=== PATIENT | male | born 1980 | race African-American/Black ===

== ENCOUNTER 2017-04-29 04:19 | Inpatient (IN) | payer MEDICARE ==
[~2017-04-29] VITALS: Ht 167.6 cm; Wt 74.8 kg
--- NOTE | ~2017-04-29 | EC ---
PATIENT:DALIA BABIN DATE OF SERVICE: 04/29/17 SEX: M MEDICAL RECORD: [id number] DATE OF : [birth year] LOCATION:D.M2 D.213 AGE OF PATIENT: 36 ADMISSION DATE: 04/29/17 REFERRING PHYSICIAN: INTERPRETING PHYSICIAN: SOLANGE RANDALL MD ECHOCARDIOGRAM REPORT ECHO CHARGES 4 ECHO COMPLETE CLINICAL DIAGNOSIS: FEVER/POSSIBLE EMBOLI/ PROSTHETIC VALVE ECHOCARDIOGRAPHIC MEASUREMENTS (adult normal given) AC root (d.<3.7cm) 3.1 cm LV Septum d (<1.2 cm> 1.2 cm Valve Excursion 1.7 cm LV Septum (systole) 1.7 cm Left Atria (s.<4.0cm> 3.4 cm LVPW d(<1.2cm) 1.2 cm RV (d.<2.3cm) 2.2 cm LVPW (sytole) 1.8 cm LV diastole(<5.6CM) 4.4 cm MV E-F(>70mm/sec) cm LV systole 3.0 cm LVOT Diameter 1.6 cm MV exc.(>10mm) cm Est.ejection fraction (50-75%) % Pericardial Effusion N DOPPLER: LVIT cm/sec A 89.0 cm/sec E 108 cm/sec LA cm/sec RVSP 48.0 mmHg LVOT 126 cm/sec AOP1/2T m/s Asc. Ao 293 cm/sec RVOT 54.0 cm/sec RA cm/sec PA 94.0 cm/sec AV Gradient Peak 34.3 mmHg AV Mean 18.0 mmHg AV Area 0.9 cm MV Gradient Peak 7.9 mmHg MV Mean 3.4 mmHg MV Area 1.4 cm COMMENTS: Manager Social: Wilton BECKFORDOE Director Of Catering Sales: 4 Dr. Randall TAPE# PACS DATE OF SERVICE: 04/29/2017 FINDINGS: 1. Left ventricle: Left ventricle has left ventricular hypertrophy. This is normal in its size; however, there is global hypokinesis and overall ejection fraction is mildly reduced in 40% to 45% range. 2. The mitral valve has moderate mitral regurgitation. Structurally appears to be normal. 3. The aortic valve difficult to visualize, appears overall normal in its structure. The base of the aortic valve appears to be thickened. There is mild ECHOCARDIOGRAM REPORT [id number] DALIA BABIN increased velocities across the aortic valve, consistent with possibly mild aortic stenosis with a peak velocity at LV gradient of 34 mmHg. There appears to be some fusion in the right coronary, noncoronary cusp. The interatrial septum and intraventricular septum overall looks normal. The left atrium appears to be normal in size IVC is normal in size and collapses with inspiration, indicating normal central venous pressure. CONCLUSIONS: The patient has evidence of mild hypertensive cardiomyopathy with reduced ejection fraction that is in the mild range with mild aortic stenosis. TRANSINT:[id number] Voice Confirmation ID: [id number] DOCUMENT ID: [id number] 05/05/2017 Edited to correct date of service, dmm. SOLANGE RANDALL MD CC: [id number] DICTATION DATE: 05/01/17 0745 TIP FIXER: 05/01/17 1202 ADM IN [facility] [id number] [place] [address]
[2017-04-29 05:08] LABS: APPEARANCE CLEAR (CLEAR); BILIRUBIN 2+ (NEGATIVE); COLOR DK YELLOW (YELLOW); GLUCOSE NEGATIVE (NEGATIVE); KETONE NEGATIVE (NEGATIVE); LEUKOCYTE ESTERASE NEGATIVE (NEGATIVE); NITRITE NEGATIVE (NEGATIVE); PROTEIN 1+ mg/dL (NEGATIVE); SPECIFIC GRAVITY 1.005 (1.005-1.020); WHITE CELLS - URINE NSEEN /hpf (0-5)
[2017-04-29 05:09] LABS: BACTERIA NONE SEEN /hpf (NONE SEEN); EPITHELIAL CELLS NSEEN /hpf (0-5)
[2017-04-29 05:29] LABS: BASOPHILS 0.1 % (0-2); EOSINOPHILS 0 % (0-7); HEMATOCRIT 34.7 % (42.0-54.0); HEMOGLOBIN 12.4 g/dL (13.5-17.5); IMMATURE GRANULOCYTES 0.5 % (0-5); LYMPHOCYTES 8.7 % (15-50); MCH 30.8 pg (26.0-34.0); MCHC 35.7 g/dL (31.0-37.0); MCV 86.3 fL (80.0-100.0); MEAN PLATELET VOLUME 11.1 fL (7.4-10.4); MONOCYTES 6.1 % (2-11); NEUTROPHILS 84.6 % (40-80); PLATELET COUNT 77 10x3/uL (130-400); RBC 4.02 10x6/uL (4.20-6.10); RDW 13.5 % (11.5-14.5); WBC 12.9 10x3/uL (4.8-10.8)
[2017-04-29 05:44] LABS: ALBUMIN 2.5 g/dL (3.4-5.0); ANION GAP 15.9 mmol/L (8-16); BILIRUBIN - TOTAL 4.4 mg/dL (0.2-1.3); CALCIUM 8.1 mg/dL (8.5-10.1); CREATININE - SERUM 1.6 mg/dL (0.6-1.3); PROTEIN - SERUM 7.9 g/dL (6.4-8.2)
[2017-04-29 05:50] LABS: POTASSIUM - SERUM 2.9 mmol/L (3.5-5.1)
[2017-04-29 07:15] LABS: C-REACTIVE PROTEIN 100.8 mg/dL (0.0-0.9)
[2017-04-29] MEDS ORDERED: PERCOCET 10/3251 TA1 PO (07:21)
[2017-04-29] MEDS ORDERED: NORVIR100 MG PO (07:21)
[2017-04-29] MEDS ORDERED: OXYCONTIN10 MG PO (07:21)
[2017-04-29] MEDS ORDERED: NEURONTIN 300300 MG PO (07:22)
[2017-04-29] MEDS ORDERED: TRUVADA 200 MG1 EACH PO (07:23)
[2017-04-29] MEDS ORDERED: REYATAZ150 MG PO (07:23)
--- NOTE | 2017-04-29 07:25 | NUR ---
PATIENT ARRIVED TO ROOM 2137 AT 0708 VIA WHEELCHAIR. ALERT/ORIENTED. PLEASANT. 20 GAUGE IV SALINE LOCKED TO LEFT WRIST. AMBULATORY. PATIENT STATES HE JUST MOVED HERE FROM [place]. REPORTS NO MEDICATIONS TAKEN SINCE Monday04/24/17. CALL LIGHT WITHIN REACH. NO DISTRESS.
--- NOTE | 2017-04-29 07:32 | NUR ---
RESTING IN BED WITH ATTENTION TOWARD TELEVISION. IV FLUIDS INFUSING ORDERED AT THIS TIME. NO DISTRESS.
[2017-04-29 08:04] VITALS: BP 105/70
--- NOTE | 2017-04-29 08:40 | NUR ---
SPOKE TO AND RECEIVED NEW ORDERS. ORDERS INPUTTED INTO SYSTEM AT THIS TIME.
[2017-04-29 09:40] LABS: ANION GAP 12.1 mmol/L (8-16); CALCIUM 7.7 mg/dL (8.5-10.1); CARBON DIOXIDE 23.4 mmol/L (21.0-32.0); CREATININE - SERUM 1.6 mg/dL (0.6-1.3); POTASSIUM - SERUM 3.5 mmol/L (3.5-5.1)
[2017-04-29 11:00] VITALS: BP 105/70; BMI 27.1
[2017-04-29 11:29] VITALS: Ht 167.6 cm; Wt 74.8 kg
[2017-04-29 13:02] VITALS: BP 94/62
--- NOTE | 2017-04-29 14:36 | NUR ---
RECEIVED NEW ORDERS FROM DR.LIVERETT ROMERO FOR PATIENT TO HAVE TYLENOL FOR INCREASED TEMP AFTER DISCUSSING LIVER ENZYMES SLIGHTLY ELEVATED. THANKED .
--- NOTE | 2017-04-29 15:04 | NUR ---
1450 LEFT UNIT VIA WHEELCHAIR FOR CT SCAN WITH CONTRAST. NO DISTRESS UPON LEAVING UNIT.
[2017-04-29 16:26] VITALS: BP 102/56
--- NOTE | 2017-04-29 18:11 | NUR ---
RESTING IN BED WITH EYES OPEN, NO DISTRESS. CALL LIGHT WITHIN REACH. IV FLUIDS INFUSING ORDERED. DENIES NEEDS AT THIS TIME.
--- NOTE | 2017-04-29 19:43 | NUR ---
PT IN BED WITH EYES OPEN AND CHEST RISING. NO SIGN/SYMPTOMS OF DISTRESS NOTED. NO NEEDS OR CONCERNS MADE KNOWN AT THIS TIME. CALL LIGHT IN REACH.
[2017-04-29 20:00] VITALS: BP 98/62
[2017-04-29 23:16] LABS: UDS - AMPHET POSITIVE QUAL (NEGATIVE); UDS - BARB NEGATIVE QUAL (NEGATIVE); UDS - BENZO NEGATIVE QUAL (NEGATIVE); UDS - COCAINE NEGATIVE QUAL (NEGATIVE); UDS - METH NEGATIVE QUAL (NEGATIVE); UDS - OPIATE NEGATIVE QUAL (NEGATIVE); UDS - PCP NEGATIVE QUAL (NEGATIVE); UDS - THC POSITIVE QUAL (NEGATIVE)
[2017-04-30] VITALS: BP 135/64
--- NOTE | 2017-04-30 | NUR ---
PT IN BED WITH EYES OPEN. PT WITH CHILLS AND SHIVERING WITH EXTRA BLANKET APPLIED. VS TAKEN BLOOD PRESSURE 135/64, PULSE 120, RESP. 26, TEMP 100.8. O2 SAT 94% ROOM AIR. PRN TYLENOL GIVEN. PT WITH EYES CLOSED AT THIS TIME SNORING. SHIVERING CONTINUES WITH ELEVATED RESPIATIONS NOTED. AT THIS TIME PT STATES PAIN IS SLOWLY DECREASING AND SHIVERING HAS LESSENED. CALL LIGHT IN REACH. WILL CONTINUE TO OBSERVE.
--- NOTE | 2017-04-30 02:14 | NUR ---
PT IN BED WITH EYES CLOSED AND CHEST RISING. NO SIGN/SYMPTOMS OF DISTRESS NOTED. CALL LIGHT IN REACH.
[2017-04-30 04:00] VITALS: BP 93/47
--- NOTE | 2017-04-30 04:26 | NUR ---
PT IN BED WITH EYES CLOSED AND CHEST RISING. NO SIGN/SYMPTOMS OF DISTRESS NOTED. NO NEEDS OR CONCERNS NOTED AT THIS TIME. CALL LIGHT IN REACH.
--- NOTE | 2017-04-30 06:25 | NUR ---
PT IN BED WITH EYES OPEN AND CHEST RISING. NO CONCERNS OF NEEDS MADE KNOWN. CALL LIGHT IN REACH.
[2017-04-30 07:51] LABS: BASOPHILS 0.1 % (0-2); EOSINOPHILS 0 % (0-7); HEMATOCRIT 32.5 % (42.0-54.0); HEMOGLOBIN 11.4 g/dL (13.5-17.5); MCH 30.5 pg (26.0-34.0); MCHC 35.1 g/dL (31.0-37.0); MCV 86.9 fL (80.0-100.0); MEAN PLATELET VOLUME 11.5 fL (7.4-10.4); MONOCYTES 8.8 % (2-11); NEUTROPHILS 78.1 % (40-80); PLATELET COUNT 59 10x3/uL (130-400); RBC 3.74 10x6/uL (4.20-6.10); RDW 13.8 % (11.5-14.5); WBC 12.8 10x3/uL (4.8-10.8)
--- NOTE | 2017-04-30 07:56 | NUR ---
AM ROUNDING- RECEIVED REPORT FROM FILER FINISH NURSE SAYDA. PT IS CURRENTLY WALKING AROUND ROOM. PT IS REQUESTING TO BE UNHOOKED FROM IV CATHETER TO TAKE SHOWER. ETELVINA KWON IS ASSISTING PT. ON ROOM AIR. ON MONITOR SHOWING ST, HR 101. IN DRPOLET ISOLATION FOR POSSIBLE FLU PER REPORT. NO NEED AT CURRENT TIME. WILL CONTINUE TO MONITOR.
[2017-04-30 07:58] LABS: ALBUMIN 2.2 g/dL (3.4-5.0); ANION GAP 10.6 mmol/L (8-16); BILIRUBIN - TOTAL 7.78 mg/dL (0.2-1.3); CARBON DIOXIDE 23.3 mmol/L (21.0-32.0); CREATININE - SERUM 1.6 mg/dL (0.6-1.3); POTASSIUM - SERUM 3.9 mmol/L (3.5-5.1); PROTEIN - SERUM 7.4 g/dL (6.4-8.2)
[2017-04-30 08:13] VITALS: BP 98/66
[2017-04-30 12:01] VITALS: BP 98/54
[2017-04-30 16:01] VITALS: BP 92/48
--- NOTE | 2017-04-30 17:50 | NUR ---
1725- PT IS CURRENTLY LAYING IN BED ON BACK WITH EYES OPEN RESTING. PT DENIES ANY NEED AT CURRENT TIME. CALL LIGHT IS IN REACH. WILL CONTINUE TO MONITOR.
--- NOTE | 2017-04-30 19:47 | NUR ---
PT IS LYING IN BED WITH EYES CLOSED, EVEN RISE AND FALL OF CHEST, NO SIGNS OF DISTRESS, WILL CONTINUE WITH PLAN OF CARE
[2017-04-30 20:00] VITALS: BP 96/54
[2017-05-01] VITALS: BP 117/47
--- NOTE | 2017-05-01 01:11 | NUR ---
CALL LIGHT IN REACH, WILL CONTINUE WITH PLAN OF CARE.
[2017-05-01 04:00] VITALS: BP 95/65
[2017-05-01 04:45] LABS: BASOPHILS 0.3 % (0-2); EOSINOPHILS 0.3 % (0-7); HEMATOCRIT 29.7 % (42.0-54.0); HEMOGLOBIN 10.5 g/dL (13.5-17.5); IMMATURE GRANULOCYTES 1.1 % (0-5); LYMPHOCYTES 19.6 % (15-50); MCH 30.6 pg (26.0-34.0); MCHC 35.4 g/dL (31.0-37.0); MCV 86.6 fL (80.0-100.0); MEAN PLATELET VOLUME 10.9 fL (7.4-10.4); MONOCYTES 14.9 % (2-11); NEUTROPHILS 63.8 % (40-80); PLATELET COUNT 70 10x3/uL (130-400); RBC 3.43 10x6/uL (4.20-6.10); RDW 14.3 % (11.5-14.5); WBC 7.5 10x3/uL (4.8-10.8)
[2017-05-01 05:14] LABS: ALBUMIN 1.9 g/dL (3.4-5.0); ANION GAP 9.6 mmol/L (8-16); BILIRUBIN - TOTAL 2.95 mg/dL (0.2-1.3); CALCIUM 7.7 mg/dL (8.5-10.1); CARBON DIOXIDE 25.2 mmol/L (21.0-32.0); CREATININE - SERUM 1.3 mg/dL (0.6-1.3); POTASSIUM - SERUM 3.8 mmol/L (3.5-5.1); PROTEIN - SERUM 6.2 g/dL (6.4-8.2)
--- NOTE | 2017-05-01 08:09 | NUR ---
LYING IN BED WATCHING TV. NO S/SX OF DISTRESS. OFFERS NO COMPLAINTS. CALL LIGHT IN REACH. BED LOW. WILL CONTINUE TO MONITOR.
--- NOTE | 2017-05-01 09:28 | NUR ---
SITTING UP IN BED WATCHING TV. PLEASANT AFFECT. OFFERS NO COMPLAINTS. NO S/SX OF DISTRESS. CALL LIGHT IN REACH. WILL CONTINUE TO MONITOR FOR FEVER
[2017-05-01 09:36] VITALS: BP 110/48
--- NOTE | 2017-05-01 11:31 | NUR ---
RESTING IN BED QUIETLY. MONITOR SHOWS NSR @ RATE OF 87. WILL CONTINUE TO MONITOR.
[2017-05-01 12:12] VITALS: BP 96/52
[2017-05-01 16:37] VITALS: BP 128/85
--- NOTE | 2017-05-01 16:51 | NUR ---
RESITED PT FROM LEFT FOREARM DUE TO PT C/O SITE BEING TENDER TO RIGHT HAND 20G X1 ATTEMPT. DRESSING C/D/I
[2017-05-01 19:00] VITALS: BP 104/55
[2017-05-02] VITALS: BP 96/63
[2017-05-02 04:00] VITALS: BP 99/57
--- NOTE | 2017-05-02 07:00 | NUR ---
RECEIVED REPORT. ASSUMED CARE OF PATIENT. CALL LIGHT WITHIN REACH. DENIES NEEDS. RESP EVEN AND UNLABORED. PATIENT STATES HE IS DOING WELL THIS AM. NO DISTRESS.
[2017-05-02 08:10] VITALS: BP 107/51
[2017-05-02 11:17] LABS: RAPID PLASMA REAGIN Reactive (Non Reactive); TREPONEMA PALLIDUM AB Positive (Negative)
[2017-05-02 12:04] VITALS: BP 104/62
[2017-05-02 12:15] LABS: HEPATITIS C ANTIBODY <0.1 (0.0-0.9)
--- NOTE | 2017-05-02 15:15 | NUR ---
TYLENOL ADMINISTERED PATIENT HAD CHILLS AND FEELS LIKE HIS FEVER IS RETURNING. NO DISTRESS. CALL LIGHT WITHIN REACH.
[2017-05-02 15:59] VITALS: BP 112/48
[2017-05-02 16:14] LABS: HEMOGLOBIN 11.7 g/dL (12.6-17.7); MCH 30.8 pg (26.6-33.0); MCHC 33.4 g/dL (31.5-35.7); MCV 92 fL (79-97); PLATELETS 69 x10E3/uL (150-379); RBC 3.82 x10E6/uL (4.14-5.80); RDW 14.6 % (12.3-15.4); WBC 10.8 x10E3/uL (3.4-10.8)
--- NOTE | 2017-05-02 19:40 | NUR ---
REST IN BED,STATE MOUTH DRY, REQUEST ICE, AND ICE GIVEN.
[2017-05-02 20:00] VITALS: BP 114/69
[2017-05-03 03:11] LABS: RMSF IGM 0.15 index (0.00-0.89)
--- NOTE | 2017-05-03 03:58 | NUR ---
REST IN BED, EYE CLOSE, CALL LIGHT WITHIN REACH.
[2017-05-03 04:00] VITALS: BP 100/43
--- NOTE | 2017-05-03 06:23 | NUR ---
PT LYING IN BED, EYES CLOSED, RESPIRATIONS EVEN AND UNLABORED. CONTINUE TO MONITOR CLOSELY. BED LOW, CALL LIGHT IN REACH, SIDE RAILS X 2, HOB 20 DEGREES.
[2017-05-03 07:10] LABS: BASOPHILS 0.1 % (0-2); EOSINOPHILS 0.4 % (0-7); HEMATOCRIT 28.4 % (42.0-54.0); IMMATURE GRANULOCYTES 1.9 % (0-5); LYMPHOCYTES 24.3 % (15-50); MCH 30.7 pg (26.0-34.0); MCHC 35.2 g/dL (31.0-37.0); MCV 87.1 fL (80.0-100.0); MEAN PLATELET VOLUME 10.6 fL (7.4-10.4); MONOCYTES 10.4 % (2-11); NEUTROPHILS 62.9 % (40-80); RBC 3.26 10x6/uL (4.20-6.10); RDW 14.6 % (11.5-14.5); WBC 7.3 10x3/uL (4.8-10.8)
[2017-05-03 07:18] LABS: PLATELET COUNT 115 10x3/uL (130-400)
[2017-05-03 07:42] LABS: ALBUMIN 1.9 g/dL (3.4-5.0); ALKALINE PHOSPHATASE 96 U/L (46-116); ALT (SGPT) 35 U/L (10-68); BILIRUBIN - INDIRECT 0.43 mg/dL (0.00-1.00); BILIRUBIN - TOTAL 1.23 mg/dL (0.2-1.3); CALC OSMOLALITY 260 mosm/kg (275-300); CALCIUM 7.9 mg/dL (8.5-10.1); CARBON DIOXIDE 24.6 mmol/L (21.0-32.0); CHLORIDE - SERUM 100 mmol/L (98-107); CREATININE - SERUM 1.1 mg/dL (0.6-1.3); GLUCOSE 97 mg/dL (74-106); POTASSIUM - SERUM 3.5 mmol/L (3.5-5.1); PROTEIN - SERUM 6.8 g/dL (6.4-8.2); SODIUM 131 mmol/L (136-145); UREA NITROGEN 7 mg/dL (7-18); eGFR NON AFRICAN AMERICAN 79 mL/min (90-120)
[2017-05-03 08:00] VITALS: BP 106/62
--- NOTE | 2017-05-03 08:19 | NUR ---
AM ROUNDING- RECEIVED REPORT FROM SUPPLY CHAIN PROGRAM MANAGER NURSE SB. PT IS CURRENTLY LAYING IN BED ON BACK WITH EYES OPEN RESTING. PT IS REQUESTING TYLENOL FOR LOW GRADE TEMP FROM AM VITALS (99.1 ORALLY). ON ROOM AIR. ON MONITOR SHOWING SR, HR 87. IV SEEN TO RIGHT HAND THAT IS SALINE LOCKED, PER REPORT FROM SUPPLY CHAIN PROGRAM MANAGER NURSE SB, IV FLUIDS WERE NOT RESTARTED DUE TO PTS POTASSIUM LEVEL. WILL GIVE PT TYLENOL ORDERD. WILL CONTINUE TO MONITOR AND CONTINUE WITH PLAN OF CARE.
--- NOTE | 2017-05-03 11:28 | NUR ---
PT INFORMED ME THAT HE IS WALKING OFF UNIT TO GO TO [facility]. WILL AWAIT PT RETURN.
[2017-05-03 12:00] VITALS: BP 115/68
[2017-05-03 13:19] LABS: LEGIONELLA ANTIGEN - URINE Negative (Negative)
[2017-05-03 13:19] LABS: CRYPTOCOCCUS AG - SERUM Negative (Negative)
--- NOTE | 2017-05-03 15:03 | NUR ---
PT IS CURRENTLY LAYING IN BED ON BACK WITH EYES OPEN RESTING WATCHING TV. PT DENIES ANY NEED AT THIS TIME. WILL CONTINUE TO MONITOR.
[2017-05-03 15:23] LABS: HISTOPLASMA GAL MANNAN AG SER 0.11 ng/mL (0.00-0.49)
--- NOTE | 2017-05-03 15:46 | NUR ---
Patient Name: DALIA BABIN Admission Status: ER Accout number: [id number] Admission Date: 04-29-2017 : 1980 Admission Diagnosis:HUMAN IMMUNODEFICIENCY VIRUS [HIV] DISEASE Attending: RICKY Current LOS: 4 Anticipated DC Date: Planned Disposition: Home Primary Insurance: [facility] [facility] MEDICARE HMO or PPO Discharge Planning Comments: * Is the patient Alert and Oriented? Yes 0 * How many steps to enter\exit or inside your home? 5-6 0 * PCP NONE CM OFFERED [facility] INFORMATION - REFUSED BY PATIENT 0 * Pharmacy [facility] [address] * Preadmission Environment Home with Family 0 * ADLs Independent 0 * Equipment None 0 * Other Equipment NO MEDICAL EQUIPMENT PROVIDER PREFERENCE 0 * List name and contact numbers for known caregivers / representatives who currently or will assist patient after discharge: AMADA MAURICE, SISTER, * Community resources currently utilized None 0 * Please name any agencies selected above. NONE 0 * Additional services required to return to the preadmission environment? No 0 * Can the patient safely return to the preadmission environment? Yes 0 * Has this patient been hospitalized within the prior 30 days at any hospital? No 0 CM MET WITH PT IN ROOM TO DISCUSS DISCHARGE PLANNING AND NEEDS. PT REPORTS LIVING AT HOME INDEPENDENTLY WITH HIS FAMILY. PT HAS NO MEDICAL EQUIPMENT AND NO OUTSIDE SERVICES ASSISTING IN THE HOME. CM DISCUSSED AVAILABILITY OF HOME HEALTH, REHAB SERVICES AND MEDICAL EQUIPMENT. PT DENIES DISCHARGE NEEDS, REPORTS HIS SISTER WILL PICK HIM UP FOR DISCHARGE HOME. IMPORTANT MESSAGE FROM MEDICARE PROVIDED AND EXPLAINED. Veterinary Technician Instructor: Ilir Oviedo
[2017-05-03 16:00] VITALS: BP 107/59
--- NOTE | 2017-05-03 18:44 | NUR ---
1830- PT IS CURRENTLY SITTING UP IN BED WITH EYES OPEN EATING DINNER. PT DENIES ANY NEED AT CURRENT TIME. CALL LIGHT IS IN REACH. WILL CONTINUE TO MONITOR.
[2017-05-03 19:00] VITALS: BP 125/54
[2017-05-04] VITALS: BP 91/52
--- NOTE | 2017-05-04 03:27 | NUR ---
NURSE ROUNDS 05/03/17 21:00 - PT LYING IN BED, AWAKE, ALERT, ORIENTED, DENIED ANY NEEDS. CONTINUE TO MONITOR CLOSELY. BED LOW, CALL LIGHT IN REACH, SIDE RAILS X 2, HOB 30 DEGREES.
[2017-05-04 04:00] VITALS: BP 119/65
--- NOTE | 2017-05-04 05:17 | NUR ---
PT HAS HAD INTERMITTENT FEVER THROUGHOUT SHIFT UP TO 101, BUT DOWN TO 98.7 AFTER TYLENOL. PT DENIES ANY NEEDS. CONTINUE TO MONITOR CLOSELY.
[2017-05-04 08:00] VITALS: BP 115/55
--- NOTE | 2017-05-04 08:05 | NUR ---
0715- AM ROUNDING- RECEIVED REPORT FROM TRANSPORTATION ENGINEER NURSE JOLANTA. PT IS CURRENTLY LAYING IN BED ON LEFT SIDE WITH EYES CLOSED RESTING. ON ROOM AIR. ON MONITOR SHOWING SR, HR 79. IV SEEN TO RIGHT HAND THAT IS CURRENTLY SALINE LOCKED, PER JOLANTA RN PT WAS HAVING A HARD TIME SLEEPING SO IV WAS SL SO PT COULD GET SOME REST, WILL RESTART IV FLUIDS ONCE PT WAKES UP. NO NEED AT THIS CURRENT TIME. WILL CONTINUE TO MONITOR AND CONTINUE WITH PLAN OF CARE.
[2017-05-04 12:00] VITALS: BP 137/72
--- NOTE | 2017-05-04 13:34 | NUR ---
RD Consult secondary to hypoablumin. Pt with fair appetite and intake secondary to reported food does not taste like he would like it to. He does slect his menu. Talked about other options such as grilled chicken breast sandwich or a hamburger 1-2 days a week. Let pt know if there was something he wanted that was not on the menu to call down to dietary to see if they could fix something for him or offer different options. Pt reported he does not eat pork, milk, eggs. Pt reported to have constipation. He says grapes or grape juice usually works. pt with both at bedside table observed. Pt also on meds for constipation as well as on pain meds Diet: AHA cardiac low fat lo cholesterol PO: 50% average X 15 meals recorded Labs: 05/01-Albumin 1.9, trended down from 2.5 (04/29 Meds: reviewed PMH: review Pt with alter nutrition related labs r/t mulifactorial with suspect some low protein status with decrease intake COLTEN Alb 1.9 Discussed with pt about adding and/or requesting double portions of meat. Pt agreed. Will place in order. No further changes at this time. Pt does not drink ensure. Will continue to provide selective menu and honor pt food preferences within reason of diet restrictions upon medical review. RD to continue to follow
[2017-05-04 14:21] LABS: EHRLICHIA CHAFF IGG Negative (Neg:<1:64); EHRLICHIA CHAFF IGM Negative (Neg:<1:20); HGE IGG TITER Negative (Neg:<1:64); HGE IGM TITER Negative (Neg:<1:20)
[2017-05-04 16:00] VITALS: BP 118/49
[2017-05-04 19:00] VITALS: BP 123/62
[2017-05-04 21:08] LABS: INFLUENZA A PCR Negative (Negative); INFLUENZA B PCR Negative (Negative)
[2017-05-05] VITALS: BP 122/59
--- NOTE | 2017-05-05 00:52 | NUR ---
NURSE ROUNDS 05/04/17 21:30 - PT LYING IN BED, AWAKE, ALERT, ORIENTED, DENIED ANY NEEDS. PT HAD A LOW GRADE TEMP DURING 19:00 V/S, PRN TYLENOL GIVEN. PT IN NO ACUTE DISTRESS AT THIS TIME. CONTINUE TO MONITOR CLOSELY. BED LOW, CALL LIGHT IN REACH, SIDE RAILS X 2, HOB 30 DEGREES.
[2017-05-05 04:00] VITALS: BP 106/50
[2017-05-05 06:46] LABS: BASOPHILS 0.2 % (0-2); EOSINOPHILS 2.6 % (0-7); HEMATOCRIT 29.7 % (42.0-54.0); HEMOGLOBIN 10.1 g/dL (13.5-17.5); IMMATURE GRANULOCYTES 1.8 % (0-5); LYMPHOCYTES 27.2 % (15-50); MCV 88.1 fL (80.0-100.0); MEAN PLATELET VOLUME 10.1 fL (7.4-10.4); MONOCYTES 11.5 % (2-11); NEUTROPHILS 56.7 % (40-80); RBC 3.37 10x6/uL (4.20-6.10); RDW 14.4 % (11.5-14.5)
[2017-05-05 06:48] LABS: PLATELET COUNT 155 10x3/uL (130-400)
--- NOTE | 2017-05-05 07:00 | NUR ---
REPORT RECEIVED FROM OFF GOING NURSE. PT LYING IN BED WATCHING TV. ALERT X4. C/O RIGHT HIP PAIN WHICH IS A CHRONIC ISSUE. HE TAKES SCHEDUALED PAIN MEDICATION. DENIES PAIN, SOB OR CHILLS. ABLE TO PREFORM SELF ADL'S. CALL LIGHT IN REACH. WILL CONT POC
[2017-05-05 07:07] LABS: ALBUMIN 1.9 g/dL (3.4-5.0); ANION GAP 9.4 mmol/L (8-16); BILIRUBIN - DIRECT 0.82 mg/dL (0.00-0.30); BILIRUBIN - INDIRECT 0.31 mg/dL (0.00-1.00); BILIRUBIN - TOTAL 1.13 mg/dL (0.2-1.3); CALCIUM 8.1 mg/dL (8.5-10.1); CARBON DIOXIDE 26.5 mmol/L (21.0-32.0); CREATININE - SERUM 1.2 mg/dL (0.6-1.3); POTASSIUM - SERUM 3.9 mmol/L (3.5-5.1); PROTEIN - SERUM 7.1 g/dL (6.4-8.2)
[2017-05-05 08:00] VITALS: BP 113/62
[2017-05-05 12:14] LABS: F. TULARENSIS - IGG Negative (()); F. TULARENSIS - IGM Negative (())
[2017-05-05 16:00] VITALS: BP 129/72
[2017-05-05 17:11] LABS: BASOS 0 % (()); CD4 - % CD4 POS. LYMPH 12.1 % (30.8-58.5); CD4 - ABSOLUTE CD4 HELPER 121 /uL (359-1519); EOS 0 % (()); HEMATOCRIT 30.3 % (37.5-51.0); HEMATOLOGY COMMENTS Note: (()); HEMOGLOBIN 9.8 g/dL (12.6-17.7); LYMPHS 16 % (()); MCH 29.5 pg (26.6-33.0); MCHC 32.3 g/dL (31.5-35.7); MCV 91 fL (79-97); MONOCYTES 9 % (()); MONOCYTES (ABSOLUTE) 0.5 x10E3/uL (0.1-0.9); NEUTROPHILS 75 % (()); NEUTROPHILS (ABSOLUTE) 4.5 x10E3/uL (1.4-7.0); PLATELETS 145 x10E3/uL (150-379); RBC 3.32 x10E6/uL (4.14-5.80); RDW 15.1 % (12.3-15.4)
--- NOTE | 2017-05-05 18:25 | NUR ---
20 GAUGE IV STARTED IN R FORE ARM X1 ATTEMPT. PATENT AND FLUSHES WELL WITH NO EDEMA, PAIN REDDNESS. C/D/I. K20 MEQ STARTED. NO C/O PAIN. CALL LIGHT IN REACH. WILL CONT POC
--- NOTE | 2017-05-05 18:45 | NUR ---
REPORT GIVEN TO ON COMING NURSE. BREATHING NORMAL AND UNLABOERD. 0 S/SX OF DISTRESS/DISCOMFORT NOTED. CALL LIGHT IN REACH. WILL CONT POC
--- NOTE | 2017-05-05 19:24 | NUR ---
Received patient sitting up in bed on his computer. Alert and oriented x 4. PIV in right arm infusing NS with 20mEq Kcl @100ml/hr. IV insertion site dry, no drainage, no redness, no swelling, no signs of infiltration. Reports he still has not had a BM today. Will continue to monitor. Reports that he has had chronic pain in his right hip for 10 years due to what patient reports as some type of 'necrosis' but denies pain or discomfort at this time.
[2017-05-05 20:00] VITALS: BP 114/72
--- NOTE | 2017-05-05 22:30 | NUR ---
Talking on telephone and watching TV, denies pain or discomfort at this time. States routine dose of his oxycontin SR given earlier was effective for relieving his right hip pain which he had previously rated as 8/10 in severity.
--- NOTE | 2017-05-05 23:45 | NUR ---
Patient lying in bed with eyes closed, respirations easy and regular, deeemed to be sleeping, IV continues to infuse.
--- NOTE | 2017-05-06 03:10 | NUR ---
Patient drowsy but awakened when doing routine check, complains that the IV is hurting, does have potassium infusing, checked IV site, no signs of infiltration. Slowed rate from 100ml/hr to 75ml/hr. Patient states this feels better. Will continue to monitor.
[2017-05-06 04:00] VITALS: BP 99/47
--- NOTE | 2017-05-06 05:15 | NUR ---
border guard on, rhythm SR, current HR =91/min. Continues sleeping at this time.
[2017-05-06] MEDS ORDERED: DIFLUCAN100 MG PO (07:34)
[2017-05-06] MEDS ORDERED: LINZESS145 MCG PO (07:36)
[2017-05-06] MEDS ORDERED: FLORAJEN3 CAPS460 MG PO (07:36)
[2017-05-06] MEDS ORDERED: PROTONIX40 MG PO (07:37)
[2017-05-06] MEDS ORDERED: MIRALAX17 GM PO (07:37)
[2017-05-06] MEDS ORDERED: OXYCONTIN10 MG PO (07:39)
[2017-05-06 08:00] VITALS: BP 116/75
--- NOTE | 2017-05-06 08:00 | NUR ---
INTRODUCED MYSELF TO PT PRIMARY RN FOR TODAYS SHIFT. PT VERY ANXIOUS ABOUT BEING DISCHARGED AND WOULDNT ALLOW ME TO ASSESS HIM OR DO ANYTHING AND STATED "MY RIDE IS HERE AND IM READY TO GO" WILL CONTACT FOR DISCHARGE ORDER.
[2017-05-06 08:01] LABS: BASOPHILS 0.2 % (0-2); HEMATOCRIT 30.4 % (42.0-54.0); HEMOGLOBIN 10.4 g/dL (13.5-17.5); IMMATURE GRANULOCYTES 1.3 % (0-5); MCH 30.2 pg (26.0-34.0); MCHC 34.2 g/dL (31.0-37.0); MCV 88.4 fL (80.0-100.0); MEAN PLATELET VOLUME 10.2 fL (7.4-10.4); MONOCYTES 8.1 % (2-11); NEUTROPHILS 59.4 % (40-80); PLATELET COUNT 186 10x3/uL (130-400); RBC 3.44 10x6/uL (4.20-6.10); RDW 14.5 % (11.5-14.5); WBC 5.6 10x3/uL (4.8-10.8)
[2017-05-06 08:13] LABS: ANION GAP 9.8 mmol/L (8-16); CALCIUM 8.5 mg/dL (8.5-10.1); CARBON DIOXIDE 26.5 mmol/L (21.0-32.0); CREATININE - SERUM 1.2 mg/dL (0.6-1.3); POTASSIUM - SERUM 4.3 mmol/L (3.5-5.1)
--- NOTE | 2017-05-06 08:53 | NUR ---
DISCHARGE PAPERS COMPLETED AND TEACHING PROVIDED. PT SIGNED AND VERBALIZED UNDERSTANDINGS. ALL HARD SCRIPT PRESCRIPTIONS WERE PRINTED AND GIVEN TO PT. PT IS AMBULATORY AND READY TO LEAVE. D/C PTS R.FA PIV WITH CATHETER TIP FULLY INTACT. PT DENIES ANY FURTHER NEEDS AND HAS BELONGINGS COLLECTED. WILL NOW LEAVE FACILITY.
[2017-05-08 20:08] LABS: AEROBE ID Final report (()); RESULT 1 Gram variable rods (())
== END 2017-05-06 09:34 | disposition home or self-care (01) | DRG 977 ==
LOC: D.ER 04:19 → D.M2 06:35 → OBSVTIME 06:35 → D.M2 06:35
PROVIDERS: Emergency Medicine; Student in an Organized Health Care Education/Training Program; ADMIT Family Medicine
DX: B20 Human immunodeficiency virus [HIV] disease (principal); N17.9 Acute kidney failure, unspecified; E87.6 Hypokalemia; R74.8 Abnormal levels of other serum enzymes; D69.6 Thrombocytopenia, unspecified; F12.90 Cannabis use, unspecified, uncomplicated; K59.00 Constipation, unspecified; Z95.2 Presence of prosthetic heart valve; Z72.0 Tobacco use; E88.09 Other disorders of plasma-protein metabolism, not elsewhere classified; Z68.27 Body mass index [BMI] 27.0-27.9, adult

== ENCOUNTER 2018-07-30 01:53 | Inpatient (IN) | payer MEDICARE, MEDICAID ==
[~2018-07-30] VITALS: Ht 167.6 cm; Wt 76.4 kg
--- NOTE | ~2018-07-30 | MORECARE ---
CASE MANAGEMENT DISCHARGE SUMMARY PATIENT: DALIA BABIN UNIT: [id number] ADM DATE: 07/30/18 AGE: 38 : [birth year] SEX: M ROOM/BED: D.2237 AUTHOR: IVON,DOC PHYSICIAN: REFERRING PHYSICIAN: TAMRA CEBALLOS MD DATE OF SERVICE: 07/31/18 Discharge Plan Patient Name: DALIA BABIN Facility: [facility]:[place] : 1980 Planned Disposition: Home Anticipated Discharge Date: Discharge Date: Expected LOS: Initial Reviewer: [email or web address] Initial Review Date: 07/31/2018 Generated: 07/31/18 11:34 am Comments DCP- Discharge Planning Updated by [email or web address]: Milka Bermeo on 07/31/18 9:[address] Patient Name: DALIA BABIN Admission Status: ER Accout number: [id number] Admission Date: 07-30-2018 : 1980 Admission Diagnosis: Attending: TAMRA CEBALLOS Current LOS: 1 Anticipated DC Date: Planned Disposition: Home Primary Insurance: [facility] MEDICARE SOLUTIONS Discharge Planning Comments: CM met with patient to discuss discharge planning, he is alone in the room. He was transferred here from [facility] ED for ID consult. He states he lives by himself. States he is independent with all ADL's. States he does not drive and his insurance pays for him to go to his doctor visits in [place]. States he has a service animal that a friend is taking care of. States his discharge plan is to return home, declines need for home health services. States his sister will take him home on discharge. He states he needs help with food. I provided him with a list of food pantries in [place] including local churches. No other needs identified at this time. CM will continue to follow and assist with discharge planning/needs. Wood Pole Treater: Milka Bermeo DCPIA - Discharge Planning Initial Assessment Updated by [id number]: Milka Bermeo on 07/31/18 10:29 am * Is the patient Alert and Oriented? Yes * How many steps to enter\exit or inside your home? 5/0 * PCP Dr. Olmos in [place] * Pharmacy [facility] * Preadmission Environment Home Alone * ADLs Independent * Equipment Other * Other Equipment Service Animal * List name and contact numbers for known caregivers / representatives who currently or will assist patient after discharge: Ayana Regan - - [phone] * Verbal permission to speak to the caregivers and representatives has been obtained from the patient. Yes * Community resources currently utilized None * Additional services required to return to the preadmission environment? No * Can the patient safely return to the preadmission environment? Yes * Has this patient been hospitalized within the prior 30 days at any hospital? No Patient Name: DALIA BABIN Page 17649 at 1034 All edits/amendments must be made on the electronic document DICTATION DATE: 07/31/18 1033 HADOOP JAVA DEVELOPER: RENATO 07/31/18 1033 RPT#: [id number] DC DATE: STATUS: ADM IN [facility] [address] [place] [address] END OF REPORT
--- NOTE | ~2018-07-30 | MORECARE ---
CASE MANAGEMENT DISCHARGE SUMMARY PATIENT: DALIA BABIN UNIT: [id number] ADM DATE: 07/30/18 AGE: 38 : [birth year] SEX: M ROOM/BED: D.2237 AUTHOR: SHAMAR DEL VALLE PHYSICIAN: REFERRING PHYSICIAN: TAMRA CEBALLOS MD DATE OF SERVICE: 08/02/18 Discharge Plan Patient Name: DALIA BABIN Facility: [facility]:[place] : 1980 Planned Disposition: Home Anticipated Discharge Date: Discharge Date: Expected LOS: Initial Reviewer: [email or web address] Initial Review Date: 07/31/2018 Generated: 08/02/18 1:08 pm Comments DCP- Discharge Planning Updated by [email or web address]: Milka Bermeo on 08/02/18 11:[address] Received order for discharge. Patient is in agreement to discharge plan. He states his ride is coming after lunch. Declines need for home health services or DME. CM will continue to follow and assist with discharge planning/needs. DCP- Discharge Planning Updated by [id number]: Milka Bermeo on 07/31/18 9:[address] Patient Name: DALIA BABIN Admission Status: ER Accout number: [id number] Admission Date: 07-30-2018 : 1980 Admission Diagnosis: Attending: TAMRA CEBALLOS Current LOS: 1 Anticipated DC Date: Planned Disposition: Home Primary Insurance: [facility] MEDICARE SOLUTIONS Discharge Planning Comments: CM met with patient to discuss discharge planning, he is alone in the room. He was transferred here from [facility] ED for ID consult. He states he lives by himself. States he is independent with all ADL's. States he does not drive and his insurance pays for him to go to his doctor visits in [place]. States he has a service animal that a friend is taking care of. States his discharge plan is to return home, declines need for home health services. States his sister will take him home on discharge. He states he needs help with food. I provided him with a list of food pantries in [place] including local churches. No other needs identified at this time. CM will continue to follow and assist with discharge planning/needs. Field Crops Harvest Machine Operator: Milka Bermeo DCPIA - Discharge Planning Initial Assessment Updated by [id number]: Milka Bermeo on 07/31/18 10:29 am * Is the patient Alert and Oriented? Yes * How many steps to enter\exit or inside your home? 5/0 * PCP Dr. Olmos in [place] * Pharmacy [facility] on [address] * Preadmission Environment Home Alone * ADLs Independent * Equipment Other * Other Equipment Service Animal * List name and contact numbers for known caregivers / representatives who currently or will assist patient after discharge: Ayana Regan [facility] [phone] * Verbal permission to speak to the caregivers and representatives has been obtained from the patient. Yes * Community resources currently utilized None * Additional services required to return to the preadmission environment? No * Can the patient safely return to the preadmission environment? Yes * Has this patient been hospitalized within the prior 30 days at any hospital? No Coverage Notice Reviewer: [id number] - Milka Bermeo Notice Issued Date-Time: 08/02/2018 12:00 Notice Type: IM Discharge Notice Notice Delivered To: Patient Relationship to Patient: Self Welder Apprentice Name: Delivery Method: HAND - Hand Delivered Jessica Days: Prior Verbal Notification: Recipient Understood Notice: Yes Recipient Signature: Yes Med Rec Note Co-signed by Attending: Coverage Notice Comment: IMM explained, signed, copy given, original placed in MR Last DP export: 07/31/18 9:34 Patient Name: DALIA BABIN Page 88852 at 1209 All edits/amendments must be made on the electronic document DICTATION DATE: 08/02/181207 CAR PRE COOLER: RENATO 08/02/181207 RPT#: [id number] DC DATE: STATUS: ADM IN [facility] [address] [place] [address] END OF REPORT
--- NOTE | ~2018-07-30 | MORECARE ---
CASE MANAGEMENT DISCHARGE SUMMARY PATIENT: DALIA BABIN UNIT: [id number] ADM DATE: 07/30/18 AGE: 38 : 76 SEX: M ROOM/BED: D.2237 AUTHOR: SHAMAR DEL VALLE PHYSICIAN: REFERRING PHYSICIAN: TAMRA CEBALLOS MD DATE OF SERVICE: 08/03/18 Discharge Plan Patient Name: DALIA BABIN Facility: [facility]:[place] : 1980 Planned Disposition: Home Anticipated Discharge Date: Discharge Date: 08/02/2018 Expected LOS: Initial Reviewer: [email or web address] Initial Review Date: 07/31/2018 Generated: 08/03/18 9:27 am Comments DCP- Discharge Planning Updated by [email or web address]: Milka Bermeo on 08/02/18 11:[address] Received order for discharge. Patient is in agreement to discharge plan. He states his ride is coming after lunch. Declines need for home health services or DME. CM will continue to follow and assist with discharge planning/needs. DCP- Discharge Planning Updated by [email or web address]: Milka Bermeo on 07/31/18 9:[address] Patient Name: DALIA BABIN Admission Status: ER Accout number: [id number] Admission Date: 07-30-2018 : 1980 Admission Diagnosis: Attending: TAMRA CEBALLOS Current LOS: 1 Anticipated DC Date: Planned Disposition: Home Primary Insurance: [facility] MEDICARE SOLUTIONS Discharge Planning Comments: CM met with patient to discuss discharge planning, he is alone in the room. He was transferred here from [facility] ED for ID consult. He states he lives by himself. States he is independent with all ADL's. States he does not drive and his insurance pays for him to go to his doctor visits in [place]. States he has a service animal that a friend is taking care of. States his discharge plan is to return home, declines need for home health services. States his sister will take him home on discharge. He states he needs help with food. I provided him with a list of food pantries in [place] including local churches. No other needs identified at this time. CM will continue to follow and assist with discharge planning/needs. Authors Motivational: Milka Bermeo DCPIA - Discharge Planning Initial Assessment Updated by [email or web address]: Milka Bermeo on 07/31/18 10:29 am * Is the patient Alert and Oriented? Yes * How many steps to enter\exit or inside your home? 5/0 * PCP Dr. Olmos in [place] * Pharmacy [facility] on [address] * Preadmission Environment Home Alone * ADLs Independent * Equipment Other * Other Equipment Service Animal * List name and contact numbers for known caregivers / representatives who currently or will assist patient after discharge: Ayana Regan [facility] [phone] * Verbal permission to speak to the caregivers and representatives has been obtained from the patient. Yes * Community resources currently utilized None * Additional services required to return to the preadmission environment? No * Can the patient safely return to the preadmission environment? Yes * Has this patient been hospitalized within the prior 30 days at any hospital? No Coverage Notice Reviewer: [id number] - Milka Bermeo Notice Issued Date-Time: 08/02/2018 12:00 Notice Type: IM Discharge Notice Notice Delivered To: Patient Relationship to Patient: Self Manager Heart Name: Delivery Method: HAND - Hand Delivered Jessica Days: Prior Verbal Notification: Recipient Understood Notice: Yes Recipient Signature: Yes Med Rec Note Co-signed by Attending: Coverage Notice Comment: IMM explained, signed, copy given, original placed in MR Last DP export: 08/02/18 11:08 Patient Name: DALIA BABIN Page [id number] at 0827 All edits/amendments must be made on the electronic document DICTATION DATE: 08/03/18825 COUNCIL MEMBER: RENATO 08/03/18825 RPT#: [id number] DC DATE:08/02/18 STATUS: DIS IN [facility] [address] [place] [address] END OF REPORT
--- NOTE | ~2018-07-30 | MORECARE ---
CASE MANAGEMENT DISCHARGE SUMMARY PATIENT: DALIA BABIN UNIT: [id number] ADM DATE: 07/30/18 AGE: 38 : 76 SEX: M ROOM/BED: D.2237 AUTHOR: SHAMAR DEL VALLE PHYSICIAN: REFERRING PHYSICIAN: TAMRA CEBALLOS MD DATE OF SERVICE: 08/06/18 Discharge Plan Patient Name: DALIA BABIN Facility: [facility]:[place] : 1980 Planned Disposition: Home Anticipated Discharge Date: Discharge Date: 08/02/2018 Expected LOS: Initial Reviewer: [email or web address] Initial Review Date: 07/31/2018 Generated: 08/06/18 2:01 pm Comments DCP- Discharge Planning Updated by [email or web address]: Milka Bermeo on 08/02/18 11:[address] Received order for discharge. Patient is in agreement to discharge plan. He states his ride is coming after lunch. Declines need for home health services or DME. CM will continue to follow and assist with discharge planning/needs. DCP- Discharge Planning Updated by [id number]: Milka Bermeo on 07/31/18 9:[address] Patient Name: DALIA BABIN Admission Status: ER Accout number: [id number] Admission Date: 07-30-2018 : 1980 Admission Diagnosis: Attending: TAMRA CEBALLOS Current LOS: 1 Anticipated DC Date: Planned Disposition: Home Primary Insurance: [facility] MEDICARE SOLUTIONS Discharge Planning Comments: CM met with patient to discuss discharge planning, he is alone in the room. He was transferred here from [facility] ED for ID consult. He states he lives by himself. States he is independent with all ADL's. States he does not drive and his insurance pays for him to go to his doctor visits in [place]. States he has a service animal that a friend is taking care of. States his discharge plan is to return home, declines need for home health services. States his sister will take him home on discharge. He states he needs help with food. I provided him with a list of food pantries in [place] including local churches. No other needs identified at this time. CM will continue to follow and assist with discharge planning/needs. Feed Weigher: Milka Bermeo DCPIA - Discharge Planning Initial Assessment Updated by [email or web address]: Milka Bermeo on 07/31/18 10:29 am * Is the patient Alert and Oriented? Yes * How many steps to enter\exit or inside your home? 5/0 * PCP Dr. Olmos in [place] * Pharmacy [facility] on [address] * Preadmission Environment Home Alone * ADLs Independent * Equipment Other * Other Equipment Service Animal * List name and contact numbers for known caregivers / representatives who currently or will assist patient after discharge: Ayana Regan [facility] [phone] * Verbal permission to speak to the caregivers and representatives has been obtained from the patient. Yes * Community resources currently utilized None * Additional services required to return to the preadmission environment? No * Can the patient safely return to the preadmission environment? Yes * Has this patient been hospitalized within the prior 30 days at any hospital? No Coverage Notice Reviewer: [id number] - Milka Bermeo Notice Issued Date-Time: 08/02/2018 12:00 Notice Type: IM Discharge Notice Notice Delivered To: Patient Relationship to Patient: Self Business Systems Developer Name: Delivery Method: HAND - Hand Delivered Jessica Days: Prior Verbal Notification: Recipient Understood Notice: Yes Recipient Signature: Yes Med Rec Note Co-signed by Attending: Coverage Notice Comment: IMM explained, signed, copy given, original placed in MR Last DP export: 08/03/18 7:27 Patient Name: DALIA BABIN Page [id number] at 1302 All edits/amendments must be made on the electronic document DICTATION DATE: 08/06/18 1301 FLAT FOLDER: RENATO 08/06/18 1301 RPT#: [id number] DC DATE:08/02/18 STATUS: DIS IN [facility] [address] [place] [address] END OF REPORT
[~2018-07-30 01:53] MED LIST: DIFLUCAN100 MG PO; FLORAJEN3 CAPS460 MG PO; LINZESS145 MCG PO; MIRALAX17 GM PO; NEURONTIN 300300 MG PO; NORVIR100 MG PO; OXYCONTIN10 MG PO; PERCOCET 10/3251 TA1 PO; PROTONIX40 MG PO; REYATAZ150 MG PO; TRUVADA 200 MG1 EACH PO
[2018-07-30] MEDS ORDERED: ELIQUIS5 MG PO (02:00)
[2018-07-30] MEDS ORDERED: [UNRECOGNIZED DRUG - OTHER] (02:01)
[2018-07-30] MEDS ORDERED: NORVIR100 MG (02:01)
[2018-07-30 03:20] VITALS: BP 102/54; BMI 27.1
[2018-07-30 08:21] VITALS: BP 95/44
[2018-07-30 10:54] LABS: BASOPHILS 0.5 % (0-2); EOSINOPHILS 0.4 % (0-7); HEMATOCRIT 31.5 % (42.0-54.0); HEMOGLOBIN 10.7 g/dL (13.5-17.5); IMMATURE GRANULOCYTES 1.4 % (0-5); LYMPHOCYTES 24.4 % (15-50); MCH 29.2 pg (26.0-34.0); MCV 85.8 fL (80.0-100.0); MEAN PLATELET VOLUME 9.9 fL (7.4-10.4); MONOCYTES 21.2 % (2-11); NEUTROPHILS 52.1 % (40-80); RBC 3.67 10x6/uL (4.20-6.10); RDW 14.8 % (11.5-14.5); WBC 5.7 10x3/uL (4.8-10.8)
[2018-07-30 10:55] LABS: PLATELET COUNT 121 10x3/uL (130-400)
[2018-07-30 11:11] LABS: ALBUMIN 2.2 g/dL (3.4-5.0); ANION GAP 13.5 mmol/L (8-16); BILIRUBIN - TOTAL 0.17 mg/dL (0.2-1.3); CALCIUM 8.1 mg/dL (8.5-10.1); CARBON DIOXIDE 22.5 mmol/L (21.0-32.0); CREATININE - SERUM 1.3 mg/dL (0.6-1.3); PROTEIN - SERUM 7.1 g/dL (6.4-8.2)
[2018-07-30 12:38] VITALS: BP 99/49
[2018-07-30 18:03] VITALS: Ht 167.6 cm; Wt 76.4 kg
[2018-07-30 20:00] VITALS: BP 130/71
[2018-07-31 05:00] VITALS: BP 115/57
[2018-07-31 05:09] LABS: BASOPHILS 0.4 % (0-2); EOSINOPHILS 0.6 % (0-7); HEMATOCRIT 30.2 % (42.0-54.0); HEMOGLOBIN 10.2 g/dL (13.5-17.5); IMMATURE GRANULOCYTES 1.6 % (0-5); MCH 29.1 pg (26.0-34.0); MCHC 33.8 g/dL (31.0-37.0); MEAN PLATELET VOLUME 9.7 fL (7.4-10.4); MONOCYTES 16.3 % (2-11); NEUTROPHILS 58.1 % (40-80); PLATELET COUNT 126 10x3/uL (130-400); RBC 3.51 10x6/uL (4.20-6.10); RDW 15.5 % (11.5-14.5)
[2018-07-31 05:12] LABS: ALKALINE PHOSPHATASE 65 U/L (46-116); ALT (SGPT) 12 U/L (10-68); BILIRUBIN - TOTAL 0.12 mg/dL (0.2-1.3); CALC OSMOLALITY 268 mosm/kg (275-300); CALCIUM 7.9 mg/dL (8.5-10.1); CARBON DIOXIDE 22.5 mmol/L (21.0-32.0); CHLORIDE - SERUM 103 mmol/L (98-107); CREATININE - SERUM 1.1 mg/dL (0.6-1.3); GLUCOSE 130 mg/dL (74-106); POTASSIUM - SERUM 3.3 mmol/L (3.5-5.1); PROTEIN - SERUM 6.4 g/dL (6.4-8.2); SODIUM 135 mmol/L (136-145); eGFR NON AFRICAN AMERICAN 79 mL/min (90-120)
[2018-07-31 05:15] LABS: UREA NITROGEN 3 mg/dL (7-18)
[2018-07-31 07:43] VITALS: BP 93/46
[2018-07-31 10:27] VITALS: BP 133/80
[2018-07-31 16:07] VITALS: BP 101/62
[2018-07-31 20:00] VITALS: BP 101/58
[2018-08-01 05:00] VITALS: BP 105/55
[2018-08-01 06:03] LABS: BASOPHILS 0.4 % (0-2); EOSINOPHILS 0.4 % (0-7); HEMATOCRIT 29.2 % (42.0-54.0); HEMOGLOBIN 9.8 g/dL (13.5-17.5); IMMATURE GRANULOCYTES 2.2 % (0-5); LYMPHOCYTES 27.8 % (15-50); MCH 28.8 pg (26.0-34.0); MCHC 33.6 g/dL (31.0-37.0); MCV 85.9 fL (80.0-100.0); MEAN PLATELET VOLUME 9.5 fL (7.4-10.4); MONOCYTES 12.4 % (2-11); NEUTROPHILS 56.8 % (40-80); PLATELET COUNT 113 10x3/uL (130-400); RDW 15.8 % (11.5-14.5); WBC 4.5 10x3/uL (4.8-10.8)
[2018-08-01 06:35] LABS: ALKALINE PHOSPHATASE 67 U/L (46-116); ALT (SGPT) 10 U/L (10-68); BILIRUBIN - TOTAL 0.15 mg/dL (0.2-1.3); CALC OSMOLALITY 268 mosm/kg (275-300); CALCIUM 7.8 mg/dL (8.5-10.1); CARBON DIOXIDE 21.8 mmol/L (21.0-32.0); CHLORIDE - SERUM 105 mmol/L (98-107); CREATININE - SERUM 1.1 mg/dL (0.6-1.3); GLUCOSE 101 mg/dL (74-106); POTASSIUM - SERUM 3.6 mmol/L (3.5-5.1); PROTEIN - SERUM 6.4 g/dL (6.4-8.2); SODIUM 136 mmol/L (136-145); UREA NITROGEN 4 mg/dL (7-18); eGFR NON AFRICAN AMERICAN 79 mL/min (90-120)
[2018-08-01 08:26] VITALS: BP 112/58
[2018-08-01 12:16] VITALS: BP 129/72
[2018-08-01 13:18] LABS: RAPID PLASMA REAGIN Reactive (Non Reactive); TREPONEMA PALLIDUM AB Positive (Negative)
[2018-08-01 17:05] VITALS: BP 120/64
[2018-08-01 20:00] VITALS: BP 117/72
[2018-08-02 06:54] LABS: BASOPHILS 0.2 % (0-2); EOSINOPHILS 0.7 % (0-7); HEMATOCRIT 29.5 % (42.0-54.0); IMMATURE GRANULOCYTES 2.7 % (0-5); LYMPHOCYTES 34.4 % (15-50); MCH 28.9 pg (26.0-34.0); MCHC 33.9 g/dL (31.0-37.0); MCV 85.3 fL (80.0-100.0); MEAN PLATELET VOLUME 8.9 fL (7.4-10.4); MONOCYTES 11.9 % (2-11); NEUTROPHILS 50.1 % (40-80); PLATELET COUNT 125 10x3/uL (130-400); RBC 3.46 10x6/uL (4.20-6.10); WBC 4.1 10x3/uL (4.8-10.8)
[2018-08-02 07:16] LABS: ALBUMIN 2.1 g/dL (3.4-5.0); ALKALINE PHOSPHATASE 64 U/L (46-116); BILIRUBIN - TOTAL 0.17 mg/dL (0.2-1.3); CALC OSMOLALITY 266 mosm/kg (275-300); CALCIUM 7.8 mg/dL (8.5-10.1); CHLORIDE - SERUM 102 mmol/L (98-107); CREATININE - SERUM 1.1 mg/dL (0.6-1.3); GLUCOSE 101 mg/dL (74-106); POTASSIUM - SERUM 3.3 mmol/L (3.5-5.1); PROTEIN - SERUM 6.6 g/dL (6.4-8.2); SODIUM 135 mmol/L (136-145); UREA NITROGEN 4 mg/dL (7-18); eGFR NON AFRICAN AMERICAN 79 mL/min (90-120)
[2018-08-02 07:23] LABS: ALT (SGPT) 13 U/L (10-68)
[2018-08-02 08:28] VITALS: BP 133/80
[2018-08-02] MEDS ORDERED: CARAFATE1 G/10 ML PO (11:19)
[2018-08-02] MEDS ORDERED: FLORAJEN3 CAPS460 MG PO (11:19)
[2018-08-02] MEDS ORDERED: LEVOFLOXACIN500 MG PO (11:20)
[2018-08-02] MEDS ORDERED: PEPCID PO (11:21)
[2018-08-02] MEDS ORDERED: FLAGYL500 MG PO (11:21)
[2018-08-02] MEDS ORDERED: OXYCONTIN10 MG PO (11:27)
[2018-08-02 20:08] LABS: HIV-1 RNA BY PCR 342000 (()); LOG10 HIV-1 RNA 5.534 (())
[2018-08-07 04:14] LABS: OVA + PARASITE EXAM Final report (())
== END 2018-08-02 15:00 | disposition home or self-care (01) | DRG 386 ==
LOC: D.ER 01:53 → D.MS 02:13
PROVIDERS: Emergency Medicine; Student in an Organized Health Care Education/Training Program
DX: K51.00 Ulcerative (chronic) pancolitis without complications (principal); B20 Human immunodeficiency virus [HIV] disease; E87.1 Hypo-osmolality and hyponatremia; F17.213 Nicotine dependence, cigarettes, with withdrawal; I50.9 Heart failure, unspecified; E86.0 Dehydration; E87.6 Hypokalemia

== ENCOUNTER 2018-11-25 20:22 | Emergency (ER) | payer MEDICARE, MEDICAID ==
[~2018-11-25] VITALS: Ht 167.6 cm; Wt 75.0 kg
[~2018-11-25 20:22] MED LIST changes: +CARAFATE1 G/10 ML PO; +ELIQUIS5 MG PO; +FLAGYL500 MG PO; +LEVOFLOXACIN500 MG PO; +NORVIR100 MG; +PEPCID PO; +[UNRECOGNIZED DRUG - OTHER]
[2018-11-25 20:25] VITALS: Ht 167.6 cm; Wt 75.0 kg
[2018-11-26 00:05] VITALS: BP 162/104
== END 2018-11-26 00:05 | disposition home or self-care (01) ==
LOC: D.ER 20:22
DX: M25.552 Pain in left hip (principal); F41.9 Anxiety disorder, unspecified